=== PATIENT | male | born 1960 | race African-American/Black ===

== ENCOUNTER 2018-04-22 05:15 | Emergency (ER) | payer OTHER ==
[~2018-04-22] VITALS: Ht 182.9 cm; Wt 104.3 kg
[2018-04-22 05:20] VITALS: BP 148/102
--- NOTE | 2018-04-22 05:42 | PHYS DOC ---
Past Medical History Past Medical History: Arthritis, Hypertension Additional Past Medical Histor: sinus problems (LEON THOMASON Jr., DO) Past Surgical History: No Surgical History (LEON THOMASON Jr., DO) Alcohol Use: Occasionally Drug Use: None (LEON THOMASON Jr., DO) Adult General Chief Complaint Chief Complaint: FOOT INJURY PAIN [facility] HPI Patient is a 57-year-old male who presents with complaint of left foot and great toe pain and swelling that has been present for the last 6 days. Patient states that he has been trying different things to get the swelling down but is just unable to get it down. He states the pain is moderate and is worsened with weightbearing. He denies any fever. Patient is not sure whether or not he has a history of gout but states that he has had similar episodes in the past especially when he gets cold outside. He does state that his sister has a history of gout. Patient denies any recent injury to his foot. (LEON THOMASON Jr., DO) Review of Systems Review of Systems Constitutional: Denies fever or chills [] Respiratory: Denies cough or shortness of breath [] Cardiovascular: No additional information not addressed in HPI [] Musculoskeletal: Complains of left foot and great toe pain [] (LEON THOMASON Jr., DO) Allergies Allergies Allergies Coded Allergies Type Severity Reaction Last Updated Verified No Known Drug Allergies 06/16/15 No (ROBERT MOORE MD) Physical Exam Physical Exam Constitutional: Well developed, well nourished, no acute distress, non-toxic appearance. [] Cardiovascular: Regular rate and rhythm[] Lungs & Thorax: Bilateral breath sounds clear to auscultation [] Abdomen: Bowel sounds normal, soft. [] Skin: Warm, dry. [] Extremities: Examination of left foot demonstrates mild to moderate soft tissue swelling with warmth and erythema greatest overlying the great toe. [] Neurologic: Alert and oriented X 3. [] (LEON THOMASON Jr., DO) Current Patient Data Vital Signs Vital Signs Date Time Temp Pulse Resp B/P (MAP) Pulse Ox O2 Delivery O2 Flow Rate FiO2 04/22/18 05:20 98.2 101 22 148/102 (117) 97 Room Air 98.2 (ROBERT MOORE MD) Lab Values Laboratory Tests Test 04/22/18 06:00 White Blood Count 5.0 x10^3/uL (4.0-11.0) Red Blood Count 4.47 x10^6/uL (4.30-5.70) Hemoglobin 13.2 g/dL (13.0-17.5) Hematocrit 39.4 % (39.0-53.0) Mean Corpuscular Volume 88 fL (79-100) Mean Corpuscular Hemoglobin 30 pg (25-35) Mean Corpuscular Hemoglobin Concent 33 g/dL (31-37) Red Cell Distribution Width 12.9 % (11.5-14.5) Platelet Count 249 x10^3/uL (140-400) Neutrophils (%) (Auto) 54 % (31-73) Lymphocytes (%) (Auto) 34 % (24-48) Monocytes (%) (Auto) 9 % (0-9) Eosinophils (%) (Auto) 2 % (0-3) Basophils (%) (Auto) 1 % (0-3) Neutrophils # (Auto) 2.7 x10^3uL (1.8-7.7) Lymphocytes # (Auto) 1.7 x10^3/uL (1.0-4.8) Monocytes # (Auto) 0.5 x10^3/uL (0.0-1.1) Eosinophils # (Auto) 0.1 x10^3/uL (0.0-0.7) Basophils # (Auto) 0.0 x10^3/uL (0.0-0.2) Sodium Level 141 mmol/L (136-145) Potassium Level 4.2 mmol/L (3.5-5.1) Chloride Level 102 mmol/L (98-107) Carbon Dioxide Level 30 mmol/L (21-32) Anion Gap 9 (6-14) Blood Urea Nitrogen 13 mg/dL (8-26) Creatinine 0.9 mg/dL (0.7-1.3) Estimated GFR (Cockcroft-Gault) 104.9 BUN/Creatinine Ratio 14 (6-20) Glucose Level 106 mg/dL (70-99) H Uric Acid 6.4 mg/dL (3.5-7.2) Calcium Level 9.7 mg/dL (8.5-10.1) Total Bilirubin 0.9 mg/dL (0.2-1.0) Aspartate Amino Transferase (AST) 25 U/L (15-37) Alanine Aminotransferase (ALT) 28 U/L (16-63) Alkaline Phosphatase 103 U/L (46-116) Total Protein 8.7 g/dL (6.4-8.2) H Albumin 3.7 g/dL (3.4-5.0) Albumin/Globulin Ratio 0.7 (1.0-1.7) L Laboratory Tests 04/22/18 06:00 Laboratory Tests 04/22/18 06:00 (ROBERT MOORE MD) EKG EKG [] (LEON THOMASON Jr., DO) Radiology/Procedures Radiology/Procedures [] (LEON THOMASON Jr., DO) Course & Med Decision Making Course & Med Decision Making Pertinent Labs and Imaging studies reviewed. (See chart for details) Patient moved to room upon arrival was evaluated by your medical staff after which blood work was obtained to include a CBC, CMP and uric acid. At this time , blood work is pending and patient is being signed out to oncoming ER physician. (LEON THOMASON Jr., DO) Course & Med Decision Making marco a: s/o neal likely gout labs look god ddx cellulitis gave keflex colchicine and norco return prec discussed (ROBERT MOORE MD) Dragon Disclaimer Dragon Disclaimer This electronic medical record was generated, in whole or in part, using a voice recognition dictation system. (LEON THOMASON Jr., DO) Departure Departure Impression: Primary Impression: Gout Disposition: 01 HOME, SELF-CARE Condition: STABLE Referrals: NO PCP (PCP) Scripts Cephalexin (CEPHALEXIN) 500 Mg Capsule 1 CAP PO QID, #28 CAP Prov: ROBERT MOORE MD 04/22/18 Hydrocodone/Apap 5-325 (NORCO 5-325 TABLET) 1 Each Tablet 1-2 EACH PO PRN Q6HRS PRN for PAIN, #15 as needed for pain Prov: ROBERT MOORE MD 04/22/18 Colchicine (COLCRYS) 0.6 Mg Tablet 1 TAB PO DAILY, #8 TAB 3 Refills take two tablets at the onset of gout flare, then take one tablet one hour later on day one. then take one tab daily x 5 days. Prov: ROBERT MOORE MD 04/22/18 LEON THOMASON Jr., DO Apr 22, 2018 05:42 ROBERT MOORE MD Apr 22, 2018 07:19
[2018-04-22 06:12] LABS: BASO % 1 % (0-3); EOS # 0.1 x10^3/uL (0.0-0.7); EOS % 2 % (0-3); HEMATOCRIT 39.4 % (39.0-53.0); HEMOGLOBIN 13.2 g/dL (13.0-17.5); LYMPH # 1.7 x10^3/uL (1.0-4.8); LYMPH % 34 % (24-48); MEAN CORPUSCULAR HEMOGLOBIN 30 pg (25-35); MEAN CORPUSCULAR HGB CONC 33 g/dL (31-37); MEAN CORPUSCULAR VOLUME 88 fL (79-100); MONO # 0.5 x10^3/uL (0.0-1.1); MONO % 9 % (0-9); NEUT # 2.7 x10^3uL (1.8-7.7); NEUT % 54 % (31-73); PLATELET COUNT 249 x10^3/uL (140-400); RED BLOOD COUNT 4.47 x10^6/uL (4.30-5.70); RED CELL DISTRIBUTION WIDTH 12.9 % (11.5-14.5)
[2018-04-22 06:22] LABS: CALCIUM 9.7 mg/dL (8.5-10.1); CREATININE 0.9 mg/dL (0.7-1.3); GFR 104.9; POTASSIUM 4.2 mmol/L (3.5-5.1)
[2018-04-22 06:30] LABS: ALBUMIN 3.7 g/dL (3.4-5.0); ALBUMIN/GLOBULIN RATIO 0.7 (1.0-1.7); TOTAL BILIRUBIN 0.9 mg/dL (0.2-1.0); TOTAL PROTEIN 8.7 g/dL (6.4-8.2); URIC ACID 6.4 mg/dL (3.5-7.2)
[2018-04-22] MEDS ORDERED: CEPH500C PO (07:06)
[2018-04-22] MEDS ORDERED: HYDR-3164 PO (07:06)
[2018-04-22] MEDS ORDERED: COLC0.6T34 PO (07:06)
== END 2018-04-22 07:10 | disposition home or self-care (01) ==
LOC: ER 05:15
DX: M10.9 Gout, unspecified (principal); M19.90 Unspecified osteoarthritis, unspecified site; I10 Essential (primary) hypertension
CPT/HCPCS: 36415; 80053; 84550; 85025; 99283

== ENCOUNTER 2018-09-05 13:28 | Emergency (ER) | payer OTHER ==
[~2018-09-05] VITALS: Ht 182.9 cm; Wt 104.3 kg
[~2018-09-05 13:28] MED LIST: CEPH500C PO; COLC0.6T34 PO; HYDR-3164 PO
--- NOTE | 2018-09-05 14:13 | PHYS DOC ---
Past Medical History Past Medical History: Arthritis, Hypertension Additional Past Medical Histor: sinus problems Past Surgical History: No Surgical History Alcohol Use: Occasionally Drug Use: None Adult General Chief Complaint Chief Complaint: KNEE INJURY HPI HPI 57 y/o male presents to ER for c/o lt knee pain which started on Tuesday after he bent down to pick an object off on the floor. He denies direct injury/trauma to his knee. He has hx of arthritis and Gout. He denies foot/ankle pain or skin discoloration. He walks with cane- denies inability to walk. He reports he took ibuprofen yest. denies any OTC meds for pain today. Review of Systems Review of Systems Constitutional: Denies fever Respiratory: Denies cough or shortness of breath [] Cardiovascular: No additional information not addressed in HPI [] Musculoskeletal: Reports lt knee pain without swelling/skin discoloration Integument: Denies rash or skin lesions [] Neurologic: Denies headache, focal weakness or sensory changes [] All other systems were reviewed and found to be within normal limits, except as documented in this note. Current Medications Current Medications Current Medications Medications (Trade) Dose Ordered Sig/Ashia Start Time Stop Time Status Last Admin Dose Admin Amlodipine Besylate (Norvasc) 10 mg 1X ONCE 09/05/18 15:30 09/05/18 15:31 DC 09/05/18 15:42 10 MG Ibuprofen (Motrin) 600 mg 1X ONCE 09/05/18 14:15 09/05/18 14:16 DC 09/05/18 14:33 600 MG Allergies Allergies Allergies Coded Allergies Type Severity Reaction Last Updated Verified No Known Drug Allergies 06/16/15 No Physical Exam Physical Exam Constitutional: Well developed, well nourished, no acute distress, non-toxic appearance. [] HENT: Normocephalic, atraumatic, oropharynx moist, nose normal. [] Eyes: Pupils equal, conjunctiva normal, no discharge. [] Neck: Normal range of motion, supple Cardiovascular:Heart rate regular Lungs & Thorax: Resp. equal/nonlabored Skin: Warm, dry, no erythema, no rash. [] Back: Full ROM Extremities: No cyanosis, no clubbing, ROM intact, no edema. 2+ bilat. dorsalis pedis/posterior tibial. No calf tenderness bilat. with size symmetric. Tender lt anterior knee- no palp. deformity. No palp. posterior swelling/mass/tenderness. Neurologic: Alert and oriented X 3, normal motor function, normal sensory function, no focal deficits noted. [] Psychologic: Affect normal, judgement normal, mood normal. [] Current Patient Data Vital Signs Vital Signs Date Time Temp Pulse Resp B/P (MAP) Pulse Ox O2 Delivery O2 Flow Rate FiO2 09/05/18 15:42 87 229/127 09/05/18 13:30 98.3 16 97 Room Air 98.3 EKG EKG [] Radiology/Procedures Radiology/Procedures [] Course & Med Decision Making Course & Med Decision Making Pertinent Imaging studies reviewed. (See chart for details) 1515: Discussed xray results with pt- no acute findings. Rashad wrap applied to lt knee by this provider- he remains PMS intact in LE and has had steady unassisted gait while in the ER with use of cane. Discussed need for f/u with orthopedic doctor for further care/re-eval. Will provide orthop. referral info on d/c paperwork. On re-eval. pt's BP remains elevated at 221/110- he reports he hasn't had Rx'd BP meds for 2 yrs and he takes a OTC BP supplement from [employer]. Pt denies CP/SOA/dizziness. Indepth conversation had with pt regarding his uncontrolled HTN and risk of CVA/cardiac/kidney damage. Pt's case and plan of care was discussed with Dr. Morales and with pt's current BP will start pt on Norvasc 10mg PO with Rx with his d/c paperwork. Pt strongly advised on need for f/u with PCP in next 3-5 days and he was provided with community clinic/physician resource sheet for f/u. Patient was provided with dose of Norvasc 10 mg while in the ER as he reports he has not been on any hypertension medication in the past couple of years. Patient denied having any chest pain, shortness of air, or palpitations. Patient denied any focal weakness, headache, or dizziness. Patient was being monitored for improvement of his blood pressure and his readings remained high. Patient reports he always has elevated blood pressure readings such as the ones today and he is not wanting to wait in the ER any longer. Patient verbalized risk of untreated hypertension as discussed. Pt was provided with clinic/physician resource sheet and strongly advised to call today for appt. patient verbalized understanding stating he would call for an appointment today. Patient is not wanting any additional monitoring or treatment. Patient is requesting to be discharged. On prior ER visits pt's BP has been elevated with systolic of 200s. Dragon Disclaimer Dragon Disclaimer This electronic medical record was generated, in whole or in part, using a voice recognition dictation system. Departure Departure Impression: Primary Impression: Knee pain, left Additional Impression: Hypertension Disposition: HOME, SELF-CARE Condition: STABLE Referrals: NO PCP (PCP) GAB RICKS MD Patient Instructions: Hypertension, Knee Pain, Knee Wraps (Elastic Bandage) and RICE Additional Instructions: Tylenol and/or ibuprofen as needed for pain as directed on container. Follow-up with an orthopedic doctor for reevaluation and further care. Scripts Amlodipine Besylate (NORVASC) 10 Mg Tablet 10 MG PO DAILY, #20 TAB 0 Refills Prov: DAVID SEPULVEDA APRN 09/05/18 Problem Qualifiers DAVID SEPULVEDA APRN Sep 05, 2018 14:13
[2018-09-05] MEDS ORDERED: IBUPROFEN 200 MG TABLET. PO ONE (14:15)
--- NOTE | 2018-09-05 14:54 | RAD ---
Examination: KNEE LEFT 3V History: Left knee pain since Tuesday Comparison/Correlation: 01/18/2010 left knee 3 view x-ray exam Findings: Total 3 images of the left knee were obtained. Joint spaces are unremarkable. No acute fracture or bony destruction. No definite joint effusion. No significant degenerative change for the patient's age. Impression: No suspicious process. No significant change. Electronically signed by: Newton Carter MD (09/05/2018 2:51 PM) [facility]
[2018-09-05] MEDS ORDERED: AMLO10TA4 PO (15:12)
[2018-09-05] MEDS ORDERED: amLODIPine BESYLATE 5 MG TABLET PO ONE (15:30)
[2018-09-05 16:30] VITALS: BP 239/129
== END 2018-09-05 16:26 | disposition home or self-care (01) ==
LOC: ER 13:28
DX: M25.562 Pain in left knee (principal); I10 Essential (primary) hypertension; M19.90 Unspecified osteoarthritis, unspecified site; M10.9 Gout, unspecified
CPT/HCPCS: 73562; 99284

== ENCOUNTER 2018-11-07 07:27 | Emergency (ER) | payer OTHER ==
[~2018-11-07] VITALS: Ht 182.9 cm; Wt 108.9 kg
[~2018-11-07 07:27] MED LIST changes: +AMLO10TA4 PO
[2018-11-07 08:02] VITALS: BP 163/99
[2018-11-07] MEDS ORDERED: SENN-37 PO (08:16)
--- NOTE | 2018-11-07 08:16 | PHYS DOC ---
Past Medical History Past Medical History: Arthritis, Hypertension Additional Past Medical Histor: sinus problems Past Surgical History: No Surgical History Alcohol Use: Occasionally Drug Use: None Adult General Chief Complaint Chief Complaint: MULTIPLE COMPLAINTS HPI HPI Patient is a 58 year old male who presents with was just seen at his doctor's office yesterday for gout joint pain and was prescribed allopurinol, omeprazole, hydrochlorothiazide. Patient states he still having pain in his right foot and he does not think allopurinol is working. Patient is told that he needs to get allopurinol time to work and is only taking one dose of it. Patient is also educated about a gouty diet. Patient has not been taking any kind of NSAID to help with pain and he is told he can take ibuprofen. Patient states he did not know he can take ibuprofen with his medications. Patient is rating his pain a 7 out of 10. Review of Systems Review of Systems Constitutional: Denies fever or chills [] GI: Constipation. Denies abdominal pain, nausea, vomiting, bloody stools or diarrhea [] : Denies dysuria or hematuria [] Musculoskeletal: Rigth foot pain.Denies back pain or joint pain [] Integument: Denies rash or skin lesions [] Neurologic: Denies headache, focal weakness or sensory changes [] All other systems were reviewed and found to be within normal limits, except as documented in this note. Current Medications Current Medications Current Medications Medications (Trade) Dose Ordered Sig/Ashia Start Time Stop Time Status Last Admin Dose Admin Colchicine (Colcrys) 1.2 mg 1X ONCE 11/07/18 08:30 11/07/18 08:31 DC Allergies Allergies Allergies Coded Allergies Type Severity Reaction Last Updated Verified No Known Drug Allergies 06/16/15 No Physical Exam Physical Exam Constitutional: Well developed, well nourished, no acute distress, non-toxic appearance. [] Abdomen: Bowel sounds normal, soft, no tenderness, no masses, no pulsatile masses. [] Skin: Warm, dry, no erythema, no rash. [] Extremities: Right great toe tenderness, no cyanosis, no clubbing, ROM intact, Right great toe 2 +edema. [] Neurologic: Alert and oriented X 3, normal motor function, normal sensory function, no focal deficits noted. [] Psychologic: Affect normal, judgement normal, mood normal. [] Current Patient Data Vital Signs Vital Signs Date Time Temp Pulse Resp B/P (MAP) Pulse Ox O2 Delivery O2 Flow Rate FiO2 11/07/18 08:02 98.6 76 18 163/99 (120) 98 Room Air 98.6 EKG EKG [] Radiology/Procedures Radiology/Procedures [] Course & Med Decision Making Course & Med Decision Making Patient is a 58 year old male who presents with was just seen at his doctor's office yesterday for gout joint pain and was prescribed allopurinol, omeprazole, hydrochlorothiazide. Patient states he still having pain in his right foot and he does not think allopurinol is working. Patient is told that he needs to get a llopurinol time to work and is only taking one dose of it. Patient is also educated about a gouty diet. Patient has not been taking any kind of NSAID to help with pain and he is told he can take ibuprofen. Patient states he did not know he can take ibuprofen with his medications. Patient is rating his pain a 7 out of 10. Patient has a swollen great toe joint and the right foot there is no heat or redness to the joint. Patient is ambulatory with steady gait. Skin pink warm and dry. Patient states he is also having constipation as he was having a bowel movement this morning he stated that it was harder to get out and was stools harder. Patient states he usually has a bowel movement every day but had been a couple days since he had a bowel movement. Patient denies nausea, vomiting, shortness of air, chest pain, fever, numbness or tingling, headache, dizziness, abdominal pain, blood in his stool. Patient to continue taken his medications that were prescribed for him yesterday by his doctor. I will give him prescription for Senokot to help with his constipation. Patient drank plenty of water. Patient follow-up with his primary care provider. 0830: Nurse went in to discharge patient and give him medication order and prescriptions and the patient had already left. Dragon Disclaimer Dragon Disclaimer This electronic medical record was generated, in whole or in part, using a voice recognition dictation system. Departure Departure Impression: Primary Impression: Constipation Additional Impression: Foot pain, right Disposition: 01 HOME, SELF-CARE Condition: STABLE Referrals: UNKNOWN PCP NAME (PCP) Patient Instructions: Gout Additional Instructions: Take medications as prescribed. Drink plenty of fluids. Follow up with primary care provider. Scripts Indomethacin (INDOMETHACIN) 50 Mg Capsule 1 CAP PO TID, #30 CAP 1 Refill Prov: BLANQUITA RAMSAY APRN 11/07/18 Colchicine (COLCRYS) 0.6 Mg Tablet 1 TAB PO BID for 10 Days, #20 TAB 3 Refills Prov: BLANQUITA RAMSAY APRN 11/07/18 Sennosides/Docusate Sodium (SENOKOT-S TABLET) 1 Each Tablet 1 TAB PO BID, #30 TAB Prov: BLANQUITA RAMSAY APRN 11/07/18 Problem Qualifiers Primary Impression: Constipation Constipation type: unspecified constipation type Qualified Codes: K59.00 - Constipation, unspecified BLANQUITA RAMSAY APRN Nov 07, 2018 08:16
[2018-11-07] MEDS ORDERED: COLC0.6T34 PO (08:26)
[2018-11-07] MEDS ORDERED: INDO50CA15 PO (08:27)
[2018-11-07] MEDS ORDERED: COLCHICINE 0.6 MG TABLET PO ONE (08:30)
== END 2018-11-07 08:40 | disposition home or self-care (01) ==
LOC: ER 07:27
DX: M79.671 Pain in right foot (principal); K59.00 Constipation, unspecified; M19.90 Unspecified osteoarthritis, unspecified site; I10 Essential (primary) hypertension
CPT/HCPCS: 99283

== ENCOUNTER 2019-09-18 08:55 | Emergency (ER) | payer SELFPAY ==
[~2019-09-18] VITALS: Ht 182.9 cm; Wt 100.0 kg
[~2019-09-18 08:55] MED LIST changes: +INDO50CA15 PO; +SENN-37 PO
--- NOTE | 2019-09-18 11:24 | PHYS DOC ---
Past Medical History Past Medical History: Arthritis, Hypertension Additional Past Medical Histor: sinus problems, gout Past Surgical History: No Surgical History Smoking Status: Never Smoker Alcohol Use: Occasionally Drug Use: None General Adult EDM: Chief Complaint: HAND PROBLEM HPI: HPI: Patient is a 59 year old AA male who presents to the emergency department with complaints of pain and swelling in his right wrist, right hand, and right elbow for the last month. Patient reports it feels like his gout is flaring up, he states he is out of his gout medication that he takes for flares. He states he has been taking 200 mg of Motrin 3 times a day with little help with his pain. He also has been wearing a compression wrist splint without any benefit. He denies any recent injury, warmth, or erythema. He currently rates his pain an 8 out of 10 on the pain scale, he denies any alleviating or exacerbating factors. Patient reports a history of hypertension but states he has not been taking his medications for several months because he needs a new primary care provider. He denies any headache, numbness, tingling, weakness, or difficulty speaking. Review of Systems: Review of Systems: Constitutional: Denies fever or chills. [] HENT: Denies nasal congestion or sore throat. [] Respiratory: Denies cough or shortness of breath. [] Cardiovascular: Denies chest pain or edema. [] Musculoskeletal: Denies back pain; see HPI Integument: Denies rash. [] Neurologic: Denies headache, focal weakness or sensory changes. [] Psychiatric: Denies depression or anxiety. [] Heart Score: Risk Factors: Risk Factors: DM, Current or recent (<one month) smoker, HTN, HLP, family history of CAD, obesity. Risk Scores: Score 0 - 3: 2.5% MACE over next 6 weeks - Discharge Home Score 4 - 6: 20.3% MACE over next 6 weeks - Admit for Clinical Observation Score 7 - 10: 72.7% MACE over next 6 weeks - Early Invasive Strategies Allergies: Allergies: Allergies Coded Allergies Type Severity Reaction Last Updated Verified No Known Drug Allergies 06/16/15 No Physical Exam: PE: Constitutional: Well developed, well nourished, no acute distress, non-toxic appearance. [] HENT: Normocephalic, atraumatic, bilateral external ears normal, nose normal. [] Eyes: PERRLA, EOMI, conjunctiva normal, no discharge. [] Neck: Normal range of motion, no stridor. [] Cardiovascular:Heart rate regular rhythm Lungs & Thorax: Respirations even and unlabored, no retractions, no respiratory distress Skin: Warm, dry, no erythema, no rash. [] Extremities: Right elbow/wrist/hand: No TTP, ROM intact, sensation intact, 2+ radial pulse, 1+ edema to lateral right hand, posterior elbow, and right wrist; no cyanosis Neurologic: Alert and oriented X 3, no focal deficits noted. [] Psychologic: Affect normal, judgement normal, mood normal. [] Current Patient Data: Vital Signs: Vital Signs Date Time Temp Pulse Resp B/P (MAP) Pulse Ox O2 Delivery O2 Flow Rate FiO2 09/18/19 09:44 98.2 86 20 225/118 (153) 95 Room Air 98.2 EKG: EKG: [] Radiology/Procedures: Radiology/Procedures: [] Course & Med Decision Making: Course & Med Decision Making Pertinent Labs and Imaging studies reviewed. (See chart for details) 59-year-old -[place] male who presented to the emergency department with concerns of a gout flare for the last month. Patient is noted to be hypertensive with a blood pressure of 236/128, he reports that he has not taken his blood pressure medication for over 3 months. Patient was treated with colchicine 1.2 mg p.o. x1, prednisone 40 mg p.o. x1, clonidine 0.1 mg p.o. x1, and colchicine 0.6 mg p.o. x1 approximately 1 hour after the initial dose. The patient's history he is previously taking 10 mg of amlodipine for blood pr essure will prescribe a 2-week supply of this medication in addition to 5 additional tablets of colchicine, and a 12-day taper of prednisone. Patient will be provided with a list of primary care doctors for follow-up. Patient verbalized an understanding of home care, medications, follow-up, and return to ED instructions and was in agreement with the plan of care. [] Dragon Disclaimer: Dragon Disclaimer: This electronic medical record was generated, in whole or in part, using a voice recognition dictation system. Departure Departure Impression: Primary Impression: Gout Qualified Codes: M1A.09X0 - Idiopathic chronic gout, multiple sites, without tophus (tophi) Additional Impression: Hypertension Qualified Codes: I10 - Essential (primary) hypertension Disposition: HOME, SELF-CARE Condition: STABLE Referrals: NO PCP (PCP) Patient Instructions: Diet - Purine Restricted, Gout, [id number], Hypertension, [id number] Additional Instructions: Fill the prescriptions and use them as directed. Follow the diet instructions provided. Use the list of primary care doctors that was given to you to find a new primary care doctor. Return to the ER if your symptoms worsen. Scripts Amlodipine Besylate (AMLODIPINE BESYLATE) 10 Mg Tablet 10 MG PO DAILY for 30 Days, #30 TAB 0 Refills Prov: VINCENT NGUYEN APRN 09/18/19 Prednisone (PREDNISONE) 20 Mg Tablet 1 TAB PO UD for 12 Days, #15 TAB 0 Refills 2 tabs by mouth days 1,2,3 then 1.5 tabs by mouth days 4,5,6 then 1 tab by mouth days 7,8,9 then 0.5 tab by mouth day 10,11,12 Prov: VINCENT NGUYEN APRN 09/18/19 Colchicine (Colchicine) 0.6 Mg Tablet 1 TAB PO DAILY for gout pain for 5 Days, #5 TAB 0 Refills begin taking on 09/19/19, you received today's doses in the ER Prov: VINCENT NGUYEN APRN 09/18/19 Justicifation of Admission Dx: Justifications for Admission: Justification of Admission Dx: N/A VINCENT NGUYEN APRN Sep 18, 2019 11:24
[2019-09-18] MEDS ORDERED: COLCHICINE 0.6 MG TABLET PO ONE ×2 (11:30→12:30)
[2019-09-18] MEDS ORDERED: cloNIDine HCL 0.1 MG TABLET PO ONE (11:30)
[2019-09-18 11:42] VITALS: BP 236/128
[2019-09-18] MEDS ORDERED: predniSONE 10 MG TABLET PO ONE (12:00)
[2019-09-18] MEDS ORDERED: PRED20TA PO (12:28)
[2019-09-18] MEDS ORDERED: COLC0.6T42 PO (12:28)
[2019-09-18] MEDS ORDERED: AMLO10TA8 PO (12:28)
== END 2019-09-18 12:55 | disposition home or self-care (01) ==
LOC: ER 08:55
DX: M1A.09X0 Idiopathic chronic gout, multiple sites, without tophus (tophi) (principal); I10 Essential (primary) hypertension; R60.0 Localized edema; F41.9 Anxiety disorder, unspecified
CPT/HCPCS: 99284; J7512